=== PATIENT | male | born 1965 | race Caucasian/White ===

== ENCOUNTER 2017-02-28 06:20 | Outpatient (CLI) | payer BC ==
[~2017-02-28] VITALS: Ht 180.3 cm; Wt 100.7 kg
[~2017-02-28 06:20] MED LIST: ENLP10T PO; LOVA40TA2 PO
[2017-02-28] MEDS ORDERED: LOVA40TA2 PO (10:48)
[2017-02-28] MEDS ORDERED: NF-ESOM40C PO (10:48)
[2017-02-28] MEDS ORDERED: ENAL10TA PO (10:48)
== END 2017-02-28 10:49 ==
LOC: PREOP 06:20
PROVIDERS: ATTEND Surgery
DX: Z01.818 Encounter for other preprocedural examination (principal); Z12.11 Encounter for screening for malignant neoplasm of colon

== ENCOUNTER 2017-03-04 14:18 | Day surgery (SDC) | payer BC, OTHER ==
[~2017-03-04] VITALS: Ht 180.3 cm; Wt 100.7 kg
[~2017-03-04 14:18] MED LIST changes: +ENAL10TA PO; +NF-ESOM40C PO
--- OUTSIDE RECORDS SUMMARY | 2017-03-04 14:29 | XMS REPORT | Continuity of Care Document ---
Author Author [facility] Organization [facility] Address Unknown Phone Unavailable Allergies Active Description Code Type Severity Reaction Onset Reported/Identified Relationship to Patient Clinical Status Yes No Known Drug Allergies [id number] Drug Allergy Unknown N/A 05/24/2013 Medications There is no data. Problems Date Dx Coded Attending Type Code Diagnosis Diagnosed By 05/25/2013 ASHOK LING DO Ot 535.50 UNSP GASTRITIS GASTRODUODENITIS W/O ME 05/25/2013 ASHOK LING DO Ot 553.3 DIAPHRAGMATIC HERNIA 02/24/2014 Ot 592.1 02/24/2014 Ot 592.0 02/07/2016 Ot 592.1 CALCULUS OF URETER 02/07/2016 Ot 592.0 CALCULUS OF KIDNEY 09/24/2016 Ot 592.1 CALCULUS OF URETER 09/24/2016 Ot 592.0 CALCULUS OF KIDNEY 09/28/2016 Ot 592.1 CALCULUS OF URETER 09/28/2016 Ot 592.0 CALCULUS OF KIDNEY 02/28/2017 Ot 592.1 CALCULUS OF URETER 02/28/2017 Ot 592.0 CALCULUS OF KIDNEY 03/01/2017 Ot 592.1 CALCULUS OF URETER 03/01/2017 Ot 592.0 CALCULUS OF KIDNEY Procedures There is no data. Results There is no data. Encounters ACCT No. Visit Date/Time Discharge Status Pt. Type Provider Facility Loc./Unit Complaint [id number] 02/28/2017 06:20:00 02/28/2017 10:49:00 DIS Outpatient JOYCE GRIFFIN MD [facility] PREOP COLONOSCOPY [id number] 11/11/2014 09:27:00 11/11/2014 23:59:59 CLS Outpatient TAHIR GUZMAN [facility] OCC [id number] 07/08/2013 14:59:00 07/08/2013 23:59:59 CLS Outpatient [id number] 05/24/2013 21:40:00 05/25/2013 19:40:00 DIS Outpatient ASHOK LING DO [facility] FOREIGN BODY [id number] 03/04/2017 14:00:00 PEN Preadmit ELIAS BLANKENSHIP, JOYCE Diane [facility] ENDO SCREENING [id number] 07/01/2012 07:57:00 Document Registration [id number] 06/26/2012 13:41:00 Document Registration
[2017-03-04 14:55] VITALS: BP 126/92
[2017-03-04] MEDS ORDERED: NS IV 500 ML 500 ML IV PRN (14:58)
[2017-03-04] MEDS ORDERED: NS IV 500 ML 500 ML ONE (15:10)
[2017-03-04] MEDS ORDERED: MIDAZOLAM 2 MG/2 ML (VERSED) VIAL ONE ×4 (15:16)
[2017-03-04] MEDS ORDERED: fentaNYL INJECTION 100 MCG/2 ML AMP ONE (15:16)
[2017-03-04] MEDS: MIDAZOLAM 2 MG/2 ML (VERSED) VIAL IVP PRN ×2 (15:54→16:00)
--- NOTE | 2017-03-04 15:58 | History & Physicial ---
History of Present Illness History of Present Illness Reason for visit/HPI for screening colonoscopy. He reports a family history of colon cancer Date of Admission 03/04/17 Date Seen by Provider: Mar 04, 2017 Time Seen by Provider: 15:00 I consulted on this patient on 03/04/17 15:56 Attending Physician Joyce Griffin MD Admitting Physician Dion Cole MD Consult Allergies and Home Medications Allergies Coded Allergies: No Known Drug Allergies (Unverified , 05/24/13) Home Medications Enalapril Maleate 10 Mg Tablet, 10 MG PO DAILY, (Reported) Esomeprazole Magnesium 40 Mg Cap, 40 MG PO DAILY, (Reported) Lovastatin 40 Mg Tablet, 40 MG PO HS, (Reported) Past Slnpaxn-Zsdikh-Rbirrg Hx Patient Social History Marrital Status: Employed/Student: employed Alcohol Use: Occasionally Uses Recreational Drug Use: No Smoking Status: Never a Smoker Recent Foreign Travel: No Contact w/other who traveled: No Recent Hopitalizations: No Recent Infectious Disease Expo: No Immunizations Up To Date Tetanus Booster (TDap): Unknown Date of Pneumonia Vaccine: Nov 16, 2010 Date of Influenza Vaccine: Nov 16, 2016 Seasonal Allergies Seasonal Allergies: No Respiratory No Cardiovascular Yes High Cholesterol, Hypertension Neurological No Reproductive System Hx Reproductive Disorders: No Gastrointestinal No Musculoskeletal No Endocrine History of Endocrine Disorders: No HEENT History of HEENT Disorders: No Cancer No Psychosocial History of Psychiatric Problem: No Family Medical History Significant Family History: Cancer Family Hx: Cancer 03 FATHER (PROSTATE CA) 03 MOTHER (BREAST CA ) Cataract 03 FATHER 03 MOTHER Family history: Diabetes mellitus 03 MOTHER (TYPE 2) Constitutional: no symptoms reported EENTM: no symptoms reported Respiratory: no symptoms reported Cardiovascular: no symptoms reported Gastrointestinal: no symptoms reported Musculoskeletal: no symptoms reported Skin: no symptoms reported Psychiatric/Neurological: No Symptoms Reported Physical Exam Vital Signs Vital Sign - Last 12Hours 03/04/17 14:55 Temp 97.3 Pulse 71 Resp 18 B/P (MAP) 126/92 (103) Pulse Ox 96 O2 Delivery Room Air Capillary Refill : General Appearance: No Apparent Distress Neck: Normal Inspection Respiratory: Lungs Clear Cardiovascular: Regular Rate, Rhythm Gastrointestinal: Non Tender, Soft Back: Normal Inspection Extremity: Normal Inspection Neurologic/Psychiatric: Alert, Oriented x3 Skin: Warm/Dry Assessment/Plan Assessment and Plan gentleman to undergo screening colonoscopy. Positive family history of colon cancer. Discussed in detail. Problems: JOYCE GRIFFIN MD Mar 04, 2017 3:58 pm
--- NOTE | 2017-03-04 15:58 | Conscious Sedation/ASA ---
Conscious Sedation Pre-Proced Time Reviewed: 15:58 ASA Class: 2 Airway Mallampati Classification: ([place] appropriate class) I. II. III, IV Lungs Heart ASA score ASA 1: a normal healthy patient ASA 2: a patient with a mild systemic disease (mid diabetes, controlled hypertension, obesity ASA 3: a patient with a severe systemic disease that limits activity (angina , COPD, prior Myocardial infarction) ASA 4: a patient with an incapacitating disease that is a constant threat to life (CHF, renal failure) ASA 5: a moribund patient not expected to survive 24 hrs. (ruptured aneurysm) ASA 6: a declared brain patient whose organs are being harvested. For emergent operations, add the letter E after the classification Grade 1 Sedation Plan: Discussed options with patient/fam Note The patient is an appropriate candidate to undergo the planned procedure, sedation, and anesthesia. The patient immediately re-assessed prior to indication. JOYCE GRIFFIN MD Mar 04, 2017 3:58 pm
[2017-03-04] MEDS: fentaNYL INJECTION 100 MCG/2 ML AMP IVP PRN ×2 (15:59→16:01)
--- NOTE | 2017-03-04 16:13 | Endo Procedure Record ---
Endo Procedure Report Date of Procedure Mar 04, 2017 Surgeon (s) JOYCE GRIFFIN MD Post Procedure/Op Diagnosis Normal colonoscopy Procedure Performed Colonoscopy to cecum Description of Procedure Anesthesia Type: Conscious Sedation Specimen(s) collected/removed none Description of the Procedure indication for the procedure: This gentleman came in for a screening colonoscopy. He reported a family history of colon cancer. Informed consent was obtained after reviewing the procedure in detail. Description of the procedure: He was placed in left lateral decubitus position and his vital signs were monitored. Conscious sedation was achieved using Versed and fentanyl. Digital rectal examination was unremarkable. The colonoscope was then introduced in the rectum and advanced all the way up to the cecum. The scope was then withdrawn slowly and the mucosa examined in a systematic fashion. There was no abnormality. Impression: Normal screening colonoscopy. Positive family history. Recommend repeating in 5 years. Copies To: MAIK PATEL MD, XAVIER M MD Mar 04, 2017 4:13 pm
--- NOTE | 2017-03-04 16:14 | Discharge Inst-Simple/Standard ---
Discharge Inst-Standard Discharge Medications New, Converted or Re-Newed RX: Other Patient Instructions/Follow Up Plan of Care/Instructions/FU: Repeat colonoscopy in 5 years Activity as Tolerated: Yes Discharge Diet: No Restrictions JOYCE GRIFFIN MD Mar 04, 2017 4:14 pm
[2017-03-04 16:25] VITALS: BP 113/83
[2017-03-04 16:50] VITALS: BP 115/97
[2017-03-04 16:55] VITALS: BP 115/97
== END 2017-03-04 16:55 | disposition home or self-care (01) ==
LOC: ENDO 14:18
PROVIDERS: ATTEND Surgery
DX: Z12.11 Encounter for screening for malignant neoplasm of colon (principal); Z80.0 Family history of malignant neoplasm of digestive organs; I10 Essential (primary) hypertension; E78.00 Pure hypercholesterolemia, unspecified; Z79.899 Other long term (current) drug therapy

== ENCOUNTER → 2019-05-14 | Outpatient (REF) ==
--- NOTE | 2019-05-14 11:21 | Diagnostic Imaging Report ---
INDICATION: Left knee pain. COMPARISON: November 11, 2014. TECHNIQUE: Three radiographs of the left knee dated May 14, 2019. FINDINGS: No acute fracture or dislocation. No destructive osseous process. Joint spaces are well-maintained. No significant osteophytosis. No joint effusion. No suspicious radiopaque foreign body. IMPRESSION: Unremarkable examination without acute osseous abnormality. Dictated by: Dictated on workstation # [id number]
== END | disposition home or self-care (01) ==
LOC: OCC 10:21
PROVIDERS: ATTEND Family Medicine
CPT/HCPCS: 73562